=== PATIENT | female | born 1960 | race Caucasian/White ===

== ENCOUNTER 2018-07-16 06:40 | Emergency (ER) | payer OTHER ==
[~2018-07-16] VITALS: Ht 149.9 cm; Wt 55.1 kg
[2018-07-16 06:44] VITALS: Ht 149.9 cm; Wt 55.1 kg
[2018-07-16] MEDS ORDERED: ONDANSETRON 4 MG INJ IV STA ×2 (06:53→09:15)
[2018-07-16] MEDS ORDERED: KETOROLAC 15 MG INJ IV STA (06:53)
--- NOTE | 2018-07-16 06:54 | ERD ---
ER Documentation Chief Complaint Chief Complaint back pain since waking this am, denies pain with urination or injury HPI This is a 57-year-old female who presents for intermittent right flank pain since this morning. She denies chest pain or shortness of breath, she has noted that her urine is a little bit darker, she denies abdominal pain, no nausea or vomiting. She denies tobacco use, ROS All systems reviewed and are negative except as per history of present illness. Medications Home Meds Active Scripts Tamsulosin Hcl* (Flomax*) 0.4 Mg Cap.er.24h, 0.4 MG PO QPM, #14 CAP Prov:ORLANDO COLINDRES MD 07/16/18 Ibuprofen* (Ibuprofen*) 600 Mg Tablet, 600 MG PO Q6, #60 TAB Prov:ORLANDO COLINDRES MD 07/16/18 Allergies Allergies: Coded Allergies: No Known Allergy (Unverified , 07/16/18) PMhx/Soc Smoking Status: Never smoker FmHx Family History: No diabetes Physical Exam Vitals Vital Signs Date Temp Pulse Resp B/P (MAP) Pulse Ox O2 O2 Flow FiO2 Time Delivery Rate 07/16/18 60 17 170/60 100 Room Air 07:20 (96) 07/16/18 97.5 61 18 178/84 100 06:44 (115) Physical Exam Const: Patient is moving about trying to find a comfortable position, Head: Atraumatic Eyes: Normal Conjunctiva ENT: Normal External Ears, Nose and Mouth. Neck: Full range of motion. No meningismus. Resp: Clear to auscultation bilaterally Cardio: Regular rate and rhythm, no murmurs Abd: Soft, non tender, non distended. Normal bowel sounds Skin: No petechiae or rashes Back: No midline or flank tenderness Ext: No cyanosis, or edema Neur: Awake and alert Psych: Normal Mood and Affect Result Diagram: 07/16/1814 07/16/1814 Results 24 hrs Laboratory Tests Test 07/16/18 07:14 White Blood Count 8.9 10^3/ul Red Blood Count 4.42 10^6/ul Hemoglobin 13.2 g/dl Hematocrit 39.3 % Mean Corpuscular Volume 88.9 fl Mean Corpuscular Hemoglobin 29.9 pg Mean Corpuscular Hemoglobin Concent 33.6 g/dl Red Cell Distribution Width 11.6 % Platelet Count 209 10^3/UL Mean Platelet Volume 10.5 fl Immature Granulocytes % 0.300 % Neutrophils % 70.8 % Lymphocytes % 23.4 % Monocytes % 4.5 % Eosinophils % 0.5 % Basophils % 0.5 % Nucleated Red Blood Cells % 0.0 /100WBC Immature Granulocytes # 0.030 10^3/ul Neutrophils # 6.3 10^3/ul Lymphocytes # 2.1 10^3/ul Monocytes # 0.4 10^3/ul Eosinophils # 0.0 10^3/ul Basophils # 0.0 10^3/ul Nucleated Red Blood Cells # 0.0 10^3/ul Prothrombin Time 11.6 Sec Prothrombin Time Ratio 0.9 INR International Normalized Ratio 0.84 Urine Color STRAW Urine Clarity CLEAR Urine pH 7.0 Urine Specific [place] 1.014 Urine Ketones 1+ mg/dL Urine Nitrite NEGATIVE mg/dL Urine Bilirubin NEGATIVE mg/dL Urine Urobilinogen NEGATIVE mg/dL Urine Leukocyte Esterase NEGATIVE Lauren/ul Urine Microscopic RBC 176 /HPF Urine Microscopic WBC 5 /HPF Urine Squamous Epithelial Cells FEW /HPF Urine Bacteria FEW /HPF Urine Mucus FEW /HPF Urine Hemoglobin 3+ mg/dL Urine Glucose NEGATIVE mg/dL Urine Total Protein NEGATIVE mg/dl Sodium Level 139 mmol/L Potassium Level 3.4 mmol/L Chloride Level 101 mmol/L Carbon Dioxide Level 22 mmol/L Anion Gap 16 Blood Urea Nitrogen 17 mg/dl Creatinine 0.57 mg/dl Est Glomerular Filtrat Rate mL/min > 60 mL/min Glucose Level 120 mg/dl Calcium Level 9.3 mg/dl Total Bilirubin 0.4 mg/dl Direct Bilirubin 0.00 mg/dl Indirect Bilirubin 0.4 mg/dl Aspartate Amino Transf (AST/SGOT) 30 IU/L Alanine Aminotransferase (ALT/SGPT) 36 IU/L Alkaline Phosphatase 120 IU/L Total Protein 7.7 g/dl Albumin 4.5 g/dl Globulin 3.20 g/dl Albumin/Globulin Ratio 1.40 Lipase 90 U/L Current Medications Medications Dose Sig/Huber Start Time Status Last (Trade) Ordered Route PRN Stop Time Admin Dose Reason Admin Ondansetron 4 mg ONCE STAT 07/16/18 DC 07/16/18 HCl (Zofran IV 06:53 07:18 Inj) 07/16/18 06:55 Ketorolac 15 mg ONCE STAT 07/16/18 DC 07/16/18 Tromethamine IV 06:53 07:18 (Toradol) 07/16/18 06:55 Morphine 4 mg ONCE STAT 07/16/18 Cancel Sulfate IV 09:15 (morphine) 07/16/18 09:16 Ondansetron 4 mg ONCE STAT 07/16/18 DC HCl (Zofran IV 09:15 Inj) 07/16/18 09:16 Procedures/MDM This is a 57-year-old female who presents for evaluation of intermittent right flank pain. Patient was afebrile and nontoxic-appearing, she was given Toradol and her pain is completely resolved. Bedside ultrasound was performed showing mild hydronephrosis on the right side, no free fluid in Morison's pouch, aorta was measured at less than 3 cm, with bifurcation into the common iliacs visualized and recorded. Patient had no midline tenderness with afebrile, I have a very low suspicion for emergent cause of back pain such as cauda equina, epidural abscess, AAA, she had no peritoneal signs on abdominal exam. UA was noted for hematuria, I suspect most likely renal stone, will treat her with Motrin and Flomax. Patient had no cardiopulmonary symptoms, at discharge she was in no acute distress. EKG: Rate/Rhythm: Sinus bradycardia QRS, ST, T-waves: No changes consistent w/ acute ischemia Impression: No evidence of ischemia or arrhythmia Departure Diagnosis: Primary Impression: Flank pain Additional Impression: Kidney stone Condition: Stable ORLANDO COLINDRES MD Jul 16, 2018 06:54
[2018-07-16] MEDS ORDERED: TAMS-14 PO (09:12)
[2018-07-16] MEDS ORDERED: IBUP-1542 PO (09:12)
[2018-07-16] MEDS ORDERED: morphine 4 MG/ML VIAL IV STA (09:15)
[2018-07-16 09:21] VITALS: BP 120/78; PULSE 59; RESP 17
== END 2018-07-16 09:25 | disposition home or self-care (01) ==
LOC: FTE 06:40 → E/R 09:25
DX: N20.0 Calculus of kidney (principal)
CPT/HCPCS: 36415; 80053; 81001; 83690; 85025; 85610; 93005; 96374; 96375; J1885; J2405; Z7502